=== PATIENT | female | born 1965 | race Caucasian/White ===

== ENCOUNTER 2018-03-01 13:24 | Emergency (ER) | payer SELFPAY ==
[~2018-03-01] VITALS: Ht 157.5 cm; Wt 90.7 kg
[2018-03-01 13:32] VITALS: BP 147/72
--- NOTE | 2018-03-01 13:37 | NUR ---
PT AMBULATES WITH ASSISTANCE TO BED 3
--- NOTE | 2018-03-01 13:40 | NUR ---
52F BIB SELF WITH C/O DIZZINESS X 30 MINS GENERAL DENTIST WITH N/V. PATIENT DENIES ANY SOB OR CP. PATIENT STATES DIZZINESS IS LIKE THE ROOM IS SPINNING. PT DENIES ANY SIMILIAR EPISODE BEFORE. PT IS AOX4. GCS=15. RR ARE EVEN AND UNLABORED. SKIN WARM/DRY/COLOR FOR ETHNICITY. VSS. AWAITING ER MD [place]. WILL CONTINUE TO MONITOR.
[2018-03-01] MEDS ORDERED: MECLIZINE 25 MG TAB PO ONE (15:00)
[2018-03-01] MEDS ORDERED: ONDANSETRON 4 MG ODT PO ONE (15:00)
--- NOTE | 2018-03-01 15:04 | NUR ---
awaiting lab result. patient with no complaint. all needs met at this time. will continue to monitor.
--- NOTE | 2018-03-01 16:24 | NUR ---
patient denies any dizziness. pt is aox4. gcs=15. family by bedside. awaiting discharge.
[2018-03-01 16:47] VITALS: BP 134/75
--- NOTE | 2018-03-01 16:47 | NUR ---
Patient discharged with v/s stable. Written and verbal after care instructions given and explained. Patient alert, oriented and verbalized understanding of instructions. Ambulatory with steady gait. All questions addressed prior to discharge. ID band removed. Patient advised to follow up with PMD. Rx of Zofran and Meclizine given. Patient educated on indication of medication including possible reaction and side effects. Opportunity to ask questions provided and answered.
== END 2018-03-01 16:47 | disposition home or self-care (01) ==
LOC: MED 13:24
DX: R42 Dizziness and giddiness (principal); R11.10 Vomiting, unspecified; Z88.0 Allergy status to penicillin; Z88.1 Allergy status to other antibiotic agents
CPT/HCPCS: 36415; 81002; 81025; 84702; 93005; 99285; J8597; S0119